=== PATIENT | female | born 1970 | race Native Hawaiian/Other Pacific Islander ===

== ENCOUNTER 2021-09-02 03:28 | Emergency (ER) | payer OTHER ==
[~2021-09-02] VITALS: Ht 177.8 cm; Wt 136.1 kg
[2021-09-02 03:35] VITALS: TEMP 98.4
[2021-09-02 04:54] LABS: PLATELET COUNT 412 K/uL (152-353); POTASSIUM 3.7 mmol/L (3.6-5.2)
[2021-09-02 10:53] VITALS: BP 138/82
== END 2021-09-02 11:20 | disposition short-term general hospital (02) ==
LOC: ED 03:28
PROVIDERS: Hospitalist
DX: R00.2 Palpitations (principal); I47.1 Supraventricular tachycardia; L03.115 Cellulitis of right lower limb; J18.9 Pneumonia, unspecified organism; E11.65 Type 2 diabetes mellitus with hyperglycemia; Z79.4 Long term (current) use of insulin; Z87.898 Personal history of other specified conditions; L03.031 Cellulitis of right toe; S90.454A Superficial foreign body, right lesser toe(s), initial encounter; E66.09 Other obesity due to excess calories; F15.10 Other stimulant abuse, uncomplicated; Z11.52 Encounter for screening for COVID-19; F17.210 Nicotine dependence, cigarettes, uncomplicated; X58.XXXA Exposure to other specified factors, initial encounter; Y92.89 Other specified places as the place of occurrence of the external cause
CPT/HCPCS: 36415; 36600; 80053; 80320; 81002; 82550; 82805; 83605; 83880; 84484; 85027; 85610; 85730; 87040; 87635; 93005; 96360; 96361; 96365; 96375; 99284; J1200; J1815; J1885; J2405; J2543; J3370; U0003

== ENCOUNTER 2022-01-11 04:57 | Emergency (ER) | payer OTHER ==
[~2022-01-11] VITALS: Ht 177.8 cm; Wt 113.4 kg
[2022-01-11 05:11] VITALS: TEMP 97.8
[2022-01-11 06:14] LABS: PLATELET COUNT 243 K/uL (152-353)
[2022-01-11 06:17] LABS: POTASSIUM 3.6 mmol/L (3.6-5.2)
[2022-01-11 07:00] VITALS: BP 169/96
== END 2022-01-11 07:50 | disposition left against medical advice (07) ==
LOC: ED 04:57
PROVIDERS: Emergency Medicine Emergency Medical Services
DX: R10.84 Generalized abdominal pain (principal); I10 Essential (primary) hypertension; F15.90 Other stimulant use, unspecified, uncomplicated
CPT/HCPCS: 36415; 80053; 80307; 81002; 81025; 82150; 83690; 85027; 96360; 96374; 96375; 99284; J0360; J1885; J2270; J2405; Q9963

== ENCOUNTER 2022-05-23 11:51 | Observation (INO) | payer OTHER ==
[~2022-05-23] VITALS: Ht 177.8 cm; Wt 113.6 kg
[2022-05-23 12:03] VITALS: BP 179/101; TEMP 98.4
[2022-05-23 12:33] LABS: PLATELET COUNT 223 K/uL (152-353)
[2022-05-23 12:38] LABS: POTASSIUM 4.3 mmol/L (3.6-5.2)
[2022-05-23 16:29] VITALS: BP 147/76; TEMP 97.8; Ht 177.8 cm; Wt 113.6 kg
[2022-05-23 20:00] VITALS: BP 145/72; TEMP 97.7
[2022-05-23 23:44] VITALS: BP 143/56; TEMP 98.5
[2022-05-24 03:38] VITALS: BP 170/92; TEMP 98.5
[2022-05-24 05:01] LABS: PLATELET COUNT 212 K/uL (152-353)
[2022-05-24 08:00] VITALS: BP 153/55; TEMP 97.9
[2022-05-24] MEDS ORDERED: 904272561 PO (11:58)
[2022-05-24 12:00] VITALS: BP 178/113; TEMP 98
== END 2022-05-24 17:58 | disposition home or self-care (01) ==
LOC: ED 11:51 → MED/SURG 15:00
PROVIDERS: Emergency Medicine Emergency Medical Services; ADMIT Internal Medicine; ATTEND Internal Medicine
PROC: 0H9GXZZ Drainage of Left Hand Skin, External Approach (ICD-10-PCS; principal; 2022-05-23)
DX: L02.512 Cutaneous abscess of left hand (principal); M79.642 Pain in left hand; R60.9 Edema, unspecified; I10 Essential (primary) hypertension; F15.10 Other stimulant abuse, uncomplicated; B95.62 Methicillin resistant Staphylococcus aureus infection as the cause of diseases classified elsewhere; E11.65 Type 2 diabetes mellitus with hyperglycemia
CPT/HCPCS: 36415; 80048; 80307; 82948; 85027; 85610; 87040; 87070; 87077; 87185; 87186; 87205; 87635; 90715; 96360; 96361; 96365; 96367; 96372; 96375; 99220; 99284; G0378; J0360; J1650; J1815; J2001; J2270; J2405; J2543; U0003

== ENCOUNTER 2022-10-17 22:02 | Emergency (ER) | payer OTHER ==
[~2022-10-17] VITALS: Ht 177.8 cm; Wt 99.8 kg
[2022-10-17 22:02] VITALS: TEMP 97.6
[~2022-10-17 22:02] MED LIST: 904272561 PO
[2022-10-17 23:11] LABS: PLATELET COUNT 228 K/uL (152-353)
[2022-10-17 23:19] LABS: POTASSIUM 2.8 mmol/L (3.6-5.2)
[2022-10-18 01:05] VITALS: BP 145/72
== END 2022-10-18 01:05 | disposition left against medical advice (07) ==
LOC: ED 22:02
PROVIDERS: Emergency Medicine Emergency Medical Services
DX: I21.4 Non-ST elevation (NSTEMI) myocardial infarction (principal); F19.10 Other psychoactive substance abuse, uncomplicated; Z53.29 Procedure and treatment not carried out because of patient's decision for other reasons; F17.210 Nicotine dependence, cigarettes, uncomplicated
CPT/HCPCS: 36415; 80053; 80307; 83735; 84484; 85027; 93005; 96361; 96372; 96374; 99284; J1650; J3490

== ENCOUNTER 2022-10-19 07:35 | Emergency (ER) | payer OTHER ==
[~2022-10-19] VITALS: Ht 177.8 cm; Wt 102.1 kg
[2022-10-19 07:40] VITALS: TEMP 97.7
[2022-10-19 08:00] VITALS: BP 223/120
== END 2022-10-19 08:15 | disposition left against medical advice (07) ==
LOC: ED 07:35
DX: I21.4 Non-ST elevation (NSTEMI) myocardial infarction (principal); Z53.29 Procedure and treatment not carried out because of patient's decision for other reasons; F17.210 Nicotine dependence, cigarettes, uncomplicated; I10 Essential (primary) hypertension
CPT/HCPCS: 99284